=== PATIENT | female | born 1975 | race Caucasian/White ===

== ENCOUNTER 2022-11-09 02:34 | Emergency (ER) | payer SELFPAY ==
--- NOTE | ~2022-11-09 | XR_ITS ---
EXAMINATION: XR CHEST CLINICAL INFORMATION: Cough COMPARISON: None TECHNIQUE: Frontal view of the chest was obtained. FINDINGS: Lung volumes are symmetric. No focal consolidation is seen. No evidence of pneumothorax, pleural effusion, or pulmonary edema. Cardiac silhouette appears at the upper limits of normal in size. No acute osseous findings are seen. XR/XR chest 1V IMPRESSION: No acute cardiopulmonary findings.
[2022-11-09 02:36] VITALS: BP 154/97; PULSE 110; RESP 19; TEMP 36.6; O2SAT 97; BMI 42.0
--- NOTE | 2022-11-09 03:20 | PC.NURSE ---
PT A&Ox4, reports cough, congestion, chills, and chest congestion for 2 days. Reports pain 10/10. LS clear. O2 Sat 97% on RA. RR 20.
--- NOTE | 2022-11-09 03:33 | ED.URI ---
HPI - URI/Sore Throat General Chief Complaint: Upper Respiratory Symptoms Stated Complaint: upper respiratory Time Seen by Provider: 11/09/22 03:24 Source: patient Mode of arrival: ambulatory Limitations: no limitations History of Present Illness HPI Narrative: Patient already been vaccinated against COVID complaining of nasal congestion cough for 2 days getting worse does have history of asthma. No fever coughing frequently no shortness of breath Related Data Previous Rx's Medication Instructions Recorded cefuroxime axetil 500 mg tablet 500 mg PO BID 10 days #20 tabs 11/09/22 codeine 10 mg-guaifenesin 100 mg/5 10 ml PO Q4-6H PRN cough #237 mL 11/09/22 mL oral liquid (Guaifenesin AC) prednisone 20 mg tablet 40 mg PO DAILY #10 tabs 11/09/22 Allergies Allergy/AdvReac Type Severity Reaction Status Date / Time No Known Allergies Allergy Verified 11/09/22 03:24 Review of Systems Review of Systems: Yes all other systems are reviewed and are negative [facility] Social History Social History Alcohol intake: never Smoked in Last 30 Days: No Use of substances other than those prescribed or required for medical reasons: No Advance Directives: No Advance Directives Information Provided: No Patient : No Physical Exam Vital Signs: Vital Signs: Last Vital Signs Temp 97.9 F 11/09/22 02:36 Pulse 96 11/09/22 04:31 Resp 19 11/09/22 02:36 BP 154/97 H 11/09/22 02:36 Pulse Ox 98 11/09/22 04:31 O2 Del Method 11/09/22 04:31 BMI result Body Mass Index 42.0 Appearance: Alert. Oriented X3. No acute distress. Eyes: PERRLA, No Nystagmus ENT: Pharynx normal. Oral Mucosa moist Neck: Normal inspection. Neck supple. CVS: Normal heart rate and rhythm. Pulses normal. Respiratory: No respiratory distress. Equal air entry bilateral, no wheezing/rales/rhonchi Abdomen: Soft and nontender. Bowel sounds are present, Extremities: No lower extremity edema. No calf tenderness Neuro: Oriented X 3. No motor deficit. Medications Administered Discontinued Medications Generic Name Dose Route Start Last Admin Trade Name Freq PRN Reason Stop Dose Admin Cefuroxime Axetil 500 mg 11/09/22 03:41 11/09/22 03:51 Cefuroxime Axetil 500 Mg Tablet PO 11/09/22 03:42 500 mg ONCE ONE Administration Albuterol Sulfate 2.5 mg/ 0 mg 11/09/22 03:44 11/09/22 04:00 Albuterol/Ipratropium 3 ml INHALE 11/09/22 03:45 1 each ONCE ONE Administration Dexamethasone 10 mg 11/09/22 03:57 11/09/22 04:23 Dexamethasone 2 Mg Tablet PO 11/09/22 03:58 10 mg ONCE ONE Administration Guaifenesin/Codeine Phosphate 10 ml 11/09/22 03:27 11/09/22 03:35 Guaifen/Codeine Sf 200/20/10ml 10 Ml Liquid PO 11/09/22 03:28 10 ml ONCE ONE Administration Medical Decision Making Lab Data MDM Lab Attestation statement: I reviewed the patient's lab results. Labs: Lab Results 11/09/22 Range/Units 02:49 Influenza Type A (PCR) NEGATIVE (Negative) Influenza Type B (PCR) NEGATIVE (Negative) RSV RNA Qual (PCR) NEGATIVE (Negative) SARS-CoV-2 RNA (RT-PCR) NEGATIVE (Negative) Discharge Plan Discharge Clinical Impression: Bronchitis Patient Disposition: Home, Self-Care Instructions: Acute Bronchitis (ED) Additional Instructions: Take antibiotic and cough syrup as prescribed Use your inhaler every 4-6 hours as needed Prednisone as prescribed Follow with PCP as needed Prescriptions: New cefuroxime axetil 500 mg tablet 500 mg PO BID 10 Days Qty: 20 0RF codeine-guaifenesin [Guaifenesin AC] 10-100 mg/5 mL liquid 10 ml PO Q4-6H PRN (Reason: cough) Qty: 237 0RF prednisone 20 mg tablet 40 mg PO DAILY Qty: 10 0RF Interventions: ED Discharge Assessment Last Done: 11/09/22 04:46 Discharge Date/Time: 11/09/22 04:46
[2022-11-09] MEDS: guaiFEN/Codeine SF 200/20/10ML 10 ML LIQUID PO (03:35)
[2022-11-09 03:36] LABS: Influenza A PCR NEGATIVE (Negative); Influenza B PCR NEGATIVE (Negative); Resp Syncy Virus RNA Qual PCR NEGATIVE (Negative); SARS COV2 PCR INHOUSE NEGATIVE (Negative)
[2022-11-09] MEDS: Albuterol Sulfate 2.5 MG, Albuterol/Iprat 2.5/0.5MG 3 ML 3 ML INHALE (04:00)
[2022-11-09] MEDS: dexAMETHasone 2 MG TABLET 10 MG PO (04:23)
--- NOTE | 2022-11-09 04:30 | PC.NURSE ---
Meds given as documented, reports effective pain relief.
[2022-11-09 04:31] VITALS: PULSE 96; O2SAT 98
== END 2022-11-09 04:46 | disposition home or self-care (01) ==
PROVIDERS: Emergency Provider Internal Medicine
DX: J40 Bronchitis, not specified as acute or chronic (principal); Z20.822 Contact with and (suspected) exposure to COVID-19
CPT/HCPCS: 0241U; 71045; 99284; J8540

== ENCOUNTER 2025-06-16 12:22 | Emergency (ER) | payer MEDICAID, SELFPAY ==
--- NOTE | ~2025-06-16 | XR_ITS ---
EXAMINATION: XR KNEE, LEFT CLINICAL INFORMATION: pain COMPARISON: None available. TECHNIQUE: AP oblique and lateral views of the left knee. FINDINGS: Small marginal osteophyte formation, lateral tibial plateau and lateral femoral condyle. Asymmetric joint space narrowing. No acute cortical disruption or malalignment. No lytic or blastic lesions. Marginal osteophyte formation in the posterior superior patella. No suprapatellar bursa joint effusion. XR/XR knee LT 4V IMPRESSION: Mild tricompartmental osteoarthrosis. Electronically signed by: Christian Guerrero MD 06/16/2025 02:09 PM EDT
[2025-06-16 13:44] VITALS: BP 209/90; PULSE 89; RESP 16; TEMP 36.3; O2SAT 96; BMI 42.5
--- NOTE | 2025-06-16 13:44 | ED_ITS ---
HPI - General Adult General Chief complaint: Extremity Problem Stated complaint: l knee pain Time Seen by Provider: 06/16/25 17:12 Source: patient, RN notes reviewed and old records reviewed Mode of arrival: ambulatory Limitations: no limitations History of Present Illness ED Provider: Tamera TOMAS narrative: 50-year-old female presents for evaluation of left knee pain. She reports a history of arthritis in his had pain for the last 3 days pain She denies any recent trauma. She reports having had a cortisone injection in the left knee about 1 year ago which helped for a few months. She has been medicating at home with ibuprofen 800 mg about ran out of her prescription. The patient reports recently moving to the area and does not have any outpatient care set up she tried to go to the orthopedic office but was told she needs a referral and unfortunately she does not have a primary doctor. She is mostly requesting a referral to Orthopedics Related Data Previous Rx's ?Medication ?Instructions ?Recorded cefuroxime axetil 500 mg tablet 500 mg PO BID 10 days #20 tabs 11/09/22 codeine 10 mg-guaifenesin 100 mg/5 10 ml PO Q4-6H PRN cough #237 mL 11/09/22 mL oral liquid (Guaifenesin AC) prednisone 20 mg tablet 40 mg (2 x 20 mg) PO DAILY # 10 tabs 11/09/22 ibuprofen 800 mg tablet 800 mg PO Q8H PRN pain #30 t abs 06/16/25 Allergies Allergy/AdvReac Type Severity Reaction Status Date / Time Penicillins Allergy Rash Verified 06/16/25 13:46 Review of Systems Constitutional: Constitutional: Denies body ache(s), Denies chills and Denies fever(s) Musculoskeletal: Musculoskeletal: Reports arthralgias, Reports joint swelling, Reports limited range of motion and Reports radiating pain into limb Integumentary/Breasts: Skin/Breast: Denies erythema and Denies wounds PMFSH Social History Social History Alcohol intake: never Advance Directives: No Advance Directives Information Provided: No Physical Exam ED Vital Signs: Vital Signs - 24 hr 06/16/25 13:44 06/16/25 18:03 Temperature 97.4 F 97.4 F Pulse Rate 89 84 Respiratory Rate 16 16 Blood Pressure 209/90 H 157/93 H Pulse Oximetry 96 97 Oxygen Delivery Method Room Air Room Air BMI result Body Mass Index 42.5 Const General: healthy appearing, comfortable, no acute distress, alert and awake Nutritional Appearance: well nourished Orientation/consciousness: patient oriented x3 HENMT Head: Yes normocephalic and Yes atraumatic Eyes Eyelids: Yes eyelids normal Conjunctivae: conjunctivae normal Sclerae: sclerae normal Corneas: corneas normal Pupils: Equal, round and reactive pupils present EOM: EOMs intact bilaterally Neck Neck: Yes full ROM Resp Effort & Inspection: normal respiratory effort, able to speak in complete sentences and not labored Skin General skin exam: elasticity normal Neuro General: patient oriented x3 Cranial nerves: Yes Equal, round and reactive pupils present and Yes Bilaterally intact EOM present Cognition (Neuro): normal cognition Extrem Other: There is no clear or significant edema which could be mass due to body habitus. There was no clear joint effusion. The patient is able to flex and extend the knee without assistance. There was no calf tenderness. She is tender pretty much globally to the left knee, medial, anterior and lateral. Radial pulses are 2+ and equal. No palpable cords Cords to the left calf. No overlying skin changes such as erythema or increased warmth her rashes. Course Course Course Narrative: This is a rapid medical exam performed by Halima Bland NP: Additional HPI, ROS, PE not included below will be deferred to primary provider. Patient is a 50-year-old female with history of arthritis presenting to the ED with complaint of left knee pain which she states feels different from her regular arthritis. Denies fall or other trauma. Plan: xray Medical Decision Making Medical Decision Making MDM Narrative: Presents for evaluation of left knee pain. This is atraumatic. She does have a long/chronic history of osteoarthritis and has been followed previously, unfortunately she is new to the area and does not have any outpatient providers currently. Her x-ray shows mild arthritis. There are no evidence to suggest infectious process. No joint effusion, no fever, no erythema. There was no evidence of DVT. Plan to discharge the patient is symptomatic care for her to Orthopedics Differential Diagnosis Differential Diagnoses: The differential diagnosis associated with the presentation includes Osteoarthritis Joint effusion Knee pain DVT less likely Independent Interpretation I performed an independent interpretation of an: Plain X-Ray Interpretation: Agree with Radiology interpretation Radiology Impression Discussion of test interpretation with radiology: I have reviewed the radiologist's reading. Radiologist Impression: FINDINGS: Small marginal osteophyte formation, lateral tibial plateau and lateral femoral condyle. Asymmetric joint space narrowing. No acute cortical disruption or malalignment. No lytic or blastic lesions. Marginal osteophyte formation in the posterior superior patella. No suprapatellar bursa joint effusion. XR/XR knee LT 4V IMPRESSION: Mild tricompartmental osteoarthrosis. Electronically signed by: Christian Guerrero MD 06/16/2025 02:09 PM EDT Discharge Plan Discharge Clinical Impression: Acute pain of left knee Patient Disposition: Home, Self-Care Instructions: Knee Pain (ED) Additional Instructions: Your x-ray shows osteoarthritis. You may continue to use ibuprofen as needed for pain. However you should take this with food as it can cause upset stomach Follow up with Orthopedics Prescriptions: New ibuprofen 800 mg tablet 800 mg PO Q8H PRN (Reason: pain) Qty: 30 0RF No Action cefuroxime axetil 500 mg tablet 500 mg PO BID 10 Days Qty: 20 0RF codeine-guaifenesin [Guaifenesin AC] 10-100 mg/5 mL liquid 10 ml PO Q4-6H PRN (Reason: cough) Qty: 237 0RF prednisone 20 mg tablet 40 mg PO DAILY Qty: 10 0RF Referrals: [facility] [Provider Group] Referral Note: left knee arthritis Interventions: ED Discharge Assessment Last Done: 06/16/25 18:03 Discharge Date/Time: 06/16/25 18:04 Print Language: Chinese
[2025-06-16 18:03] VITALS: BP 157/93; PULSE 84; RESP 16; TEMP 36.3; O2SAT 97
== END 2025-06-16 18:04 | disposition home or self-care (01) ==
PROVIDERS: Emergency Provider Emergency Medicine
DX: M25.562 Pain in left knee (principal)
CPT/HCPCS: 73564; 99282; 99283

== ENCOUNTER → 2025-06-16 13:45 | Outpatient (BNV) | payer MEDICAID, SELFPAY | PROVIDERS: Visit Provider Radiology Diagnostic Radiology | DX: M17.12 Unilateral primary osteoarthritis, left knee (principal) | CPT/HCPCS: 73564 ==

== ENCOUNTER 2025-07-02 14:13 | Emergency (ER) | payer OTHER, SELFPAY ==
[2025-07-02] VITALS (7 sets, daily range): BP systolic 200–227; BP diastolic 94–119; PULSE 84–97; RESP 12–22; TEMP 36.9–37; O2SAT 95–97; BMI 43.6
--- NOTE | ~2025-07-02 | XR_ITS ---
EXAMINATION: XR LUMBOSACRAL SPINE CLINICAL INFORMATION: severe pain COMPARISON: None available. TECHNIQUE: AP and lateral views FINDINGS: Multilevel endplate sclerosis and small marginal osteophyte formation involving the lower thoracic spine the lumbar spine. There is decreased intervertebral disc height at L5-S1. Prominent transverse processes of L5. Bilateral facet joint hypertrophy at L3-4 L4-5 and L5-S1 levels. No acute cortical disruption or gross malalignment. Sclerosis and the facet joints, bilaterally XR/XR lumbar spine 2-3V IMPRESSION: Multilevel thoracolumbar spondylosis pronounced at L5-S1. Electronically signed by: Christian Guerrero MD 07/02/2025 02:50 PM EDT
--- NOTE | 2025-07-02 14:26 | ED.GENADULT ---
HPI - General Adult General Chief complaint: Abdominal Pain Stated complaint: back, both kidney pain Time Seen by Provider: 07/02/25 17:53 Source: patient Mode of arrival: ambulatory Limitations: no limitations History of Present Illness ED Provider: Dr. Jaziel Rodriguez HPI narrative: 50-year-old female with a history of hypertension, asthma, anxiety, osteoarthritis, spinal disc disease who presents emergency department severe lower back pain x2 days. The patient states she was just disease in his chronic pain. She states that over the last 2 days she has had gradual onset of lower back pain which she describes as a constant, burning sensation which is greater than 10/10. The patient took 1600 mg of ibuprofen and hydrocodone with no relief for pain. She denies numbness or weakness of her lower extremities. She denied fever or chills. She denied loss of bowel or bladder control. She denied frequency, urgency or dysuria. Related Data Previous Rx's ?Medication ?Instructions ?Recorded cefuroxime axetil 500 mg tablet 500 mg PO BID 10 days #20 tabs 11/09/22 codeine 10 mg-guaifenesin 100 mg/5 10 ml PO Q4-6H PRN cough #237 mL 11/09/22 mL oral liquid (Guaifenesin AC) prednisone 20 mg tablet 40 mg (2 x 20 mg) PO DAILY #10 tabs 11/09/22 ibuprofen 800 mg tablet 800 mg PO Q8H PRN pain #30 tabs 06/16/25 methocarbamol 750 mg tablet 750 mg PO BID PRN Back pain, 07/02/25 muscle spasm 10 days #20 tabs prednisone 10 mg tablet 10 mg PO DIRECTED #60 tabs 07/02/25 Allergies Allergy/AdvReac Type Severity Reaction Status Date / Time Penicillins Allergy Rash Verified 07/02/25 14:28 Review of Systems Review of Systems: Yes all other systems are reviewed and are negative [facility] Past Medical History [facility] Narrative: Social history: She denies tobacco, alcohol and drug use Social History Social History Alcohol intake: never Advance Directives: No Advance Directives Information Provided: No Do you have a plan to hurt others: No Plan Physical Exam ED Vital Signs: Vital Signs - 24 hr 07/02/25 14:26 Temperature 98.4 F Pulse Rate 97 Respiratory Rate 12 Blood Pressure 200/94 H Pulse Oximetry 95 Oxygen Delivery Method Room Air BMI result Body Mass Index 43.6 Vital signs revealed an elevated blood pressure of 200/94 otherwise unremarkable Exam: General: Awake, alert in no distress, weight 111.6 kg, elevated BMI 43.6 kg per m2, appears to be in distress secondary to her back pain Head: Normocephalic, atraumatic EENT: PERRL, Lids normal, sclera normal, conjunctiva normal, nose normal , ears normal, throat without erythema or exudates Neck: Supple, no adenopathy Lung: breath sounds symmetric, no wheezing, rales or rhonchi Chest: symmetric movement, nontender Heart: regular rate and rhythm, normal S1, S2 no murmurs or rubs Abdomen: soft, non-tender, nondistended, normal bowel sounds Back: Patient has tenderness palpation of her thoracic and lumbar vertebrae as well as tenderness palpation of the paraspinal muscles in the lumbar sacral area bilaterally with spasm of these muscles. She has a negative straight leg raises bilaterally Extremities: no deformities, moves all extremities symmetrically Neuro: Awake, alert, oriented, normal speech, cranial nerves intact, moves all extremities symmetrically Psych: Pleasant, cooperative Course Course Course Narrative: This is a rapid medical exam performed by Halima Bland NP: Additional HPI, ROS, PE not included below will be deferred to primary provider. Patient is a 50-year- old female presenting with complaint of bilateral lower back pain radiating around to abdomen since yesterday. Describes pain as burning. Took ibuprofen and hydrocodone yesterday but pain worse today. BP 200/94 Plan: lumbar xray, UA Medical Decision Making Medical Decision Making [facility] Narrative: 50-year-old female with a history of hypertension, asthma, anxiety, osteoarthritis, spinal disc disease who presents emergency department severe lower back pain x2 days. The patient states she was just disease in his chronic pain. She states that over the last 2 days she has had gradual onset of lower back pain which she describes as a constant, burning sensation which is greater than 10/10. The patient took 1600 mg of vital signs revealed an elevated ibuprofen and hydrocodone with no relief for pain. She denies numbness or weakness of her lower extremities. She denied fever or chills. She denied loss of bowel or bladder control. She denied frequency, urgency or dysuria. Vital signs revealed an elevated blood pressure of 294 otherwise unremarkable. Patient did appear to be in distress secondary to her back pain. She did have tenderness palpation over her thoracic and lumbar spine as well as the paraspinal muscles in the lumbar sacral area with spasm of these muscles. She had negative straight leg raises bilaterally neurologic exam was nonfocal. Differential diagnosis: ?Includes but is not limited to degenerative disc disease, degenerative joint disease, musculoskeletal sprain with spasm, anemia, electrolyte abnormalities, compression fracture Course: 18:25 My independent interpretation patient's laboratory evaluation is as follows: Urine was positive for blood and leukocyte esterase. Microscopic revealed 6-10 RBCs, 0-5 WBCs, 1+ bacteria, 6-10 squamous cells-non clean catch urine, I do not think that the patient has urinary tract infection plus she has no UTI symptoms. X-ray of the patient's lumbar spine revealed multilevel thoracolumbar spondylosis pronounced at L5-S1. Patient was treated with morphine 4 mg IV and Robaxin 750 mg orally. 20:55 Patient is feeling better, her pain is 4/10. Patient was given a 2nd dose of morphine 4 mg IV. Patient was discharged home with prescriptions for prednisone 60 mg once a day for 5 days, Robaxin 750 mg b.i.d. as needed for spasm. She was advised to take Tylenol alternating with her hydrocodone/acetaminophen. She was given printed and verbal instructions and discharged home. Admission/Observation Consideration of admission/observation: Escalation of care including admission/observation considered (Yes) Lab Data MDM Lab Attestation statement: I reviewed the patient's lab results. Labs: Lab Results 07/02/25 Range/Units 16:42 Urine Color Yellow Urine Appearance Clear Urine pH 6.0 (5.0-9.0) Ur Specific [place] <= 1.005 (1.005-1.025) Urine Protein Negative (Neg-Trace) mg/dL Urine Glucose (UA) Negative (Negative) mg/dL Urine Ketones Negative (Negative) mg/dL Urine Blood Moderate (2+) H (Negative) Urine Nitrite Negative (Negative) Ur Leukocyte Esterase Trace H (Negative) Urine RBC 6-10 H (0-2) /HPF Urine WBC 0-5 (0-5) /HPF Ur Squamous Epith Cells 6-10 (0-2) /HPF Urine Bacteria 1+ (None Seen) Hyaline Casts 0-2 (0-2) /LPF Radiology Impression Discussion of test interpretation with radiology: I have reviewed the radiologist's reading. Radiologist Impression: XR LUMBOSACRAL SPINE CLINICAL INFORMATION: severe pain COMPARISON: None available. TECHNIQUE: AP and lateral views FINDINGS: Multilevel endplate sclerosis and small marginal osteophyte formation involving the lower thoracic spine the lumbar spine. There is decreased intervertebral disc height at L5-S1. Prominent transverse processes of L5. Bilateral facet joint hypertrophy at L3-4 L4-5 and L5-S1 levels. No acute cortical disruption or gross malalignment. Sclerosis and the facet joints, bilaterally XR/XR lumbar spine 2-3V IMPRESSION: Multilevel thoracolumbar spondylosis pronounced at L5-S1. Electronically signed by: Christian Guerrero MD 07/02/2025 02:50 PM Independent Historian Clinical information obtained from an independent historian. History obtained from or confirmed by: Spouse Prescription Management I considered prescription management with: Other (Anti-inflammatory steroids: Prednisone, anti muscle spasm: Robaxin) Chronic Conditions Patient?s care impacted by: Hypertension and Other (Asthma) Discharge Plan Discharge Clinical Impression: Lumbar back sprain, Lumbar paraspinal muscle spasm Patient Disposition: Home, Self-Care Instructions: Muscle Spasm (ED), Back Pain (ED) Additional Instructions: Your urine test was negative for infection. The x-rays of your lower back are consistent with arthritis of your back. Take prednisone 20 mg pills, 3 pills once a day for 5 days. While you ?are taking prednisone, do not take any NSAIDs (Motrin, Advil, ibuprofen, Aleve, naproxen). Take Robaxin (methocarbamol) 750 mg pills, 1 pill every 12 hours as needed for pain or spasm. ?This medication will make you sleepy. ?Do not drive or work while taking this medication. Follow-up with your doctor in 2 days. Please return to the emergency department if your symptoms get worse or if you develop any symptoms that are concerning to you. Prescriptions: New prednisone 10 mg tablet 10 mg PO DIRECTED Qty: 60 0RF Rx Instructions: Day 1 through 5 take 6 pills then decrease by 1 pill every 2 days until you complete prescription methocarbamol 750 mg tablet 750 mg PO BID PRN (Reason: Back pain, muscle spasm) 10 Days Qty: 20 0RF No Action cefuroxime axetil 500 mg tablet 500 mg PO BID 10 Days Qty: 20 0RF codeine-guaifenesin [Guaifenesin AC] 10-100 mg/5 mL liquid 10 ml PO Q4-6H PRN (Reason: cough) Qty: 237 0RF prednisone 20 mg tablet 40 mg PO DAILY Qty: 10 0RF ibuprofen 800 mg tablet 800 mg PO Q8H PRN (Reason: pain) Qty: 30 0RF Print Language: Canadian
[2025-07-02 17:17] LABS: Appearance Urine Clear; Glucose Urine UA Negative (Negative); PH 6.0 (5.0-9.0); Specific Gravity - Urine <= 1.005 (1.005-1.025); UMIC TRIGGER UACC YES
== END 2025-07-02 21:18 | disposition home or self-care (01) ==
PROVIDERS: Registered Nurse Emergency; Emergency Provider Emergency Medicine Emergency Medical Services
DX: S33.5XXA Sprain of ligaments of lumbar spine, initial encounter (principal); M62.830 Muscle spasm of back; X58.XXXA Exposure to other specified factors, initial encounter; Y93.9 Activity, unspecified; Y92.9 Unspecified place or not applicable; Y99.8 Other external cause status; Z79.899 Other long term (current) drug therapy
CPT/HCPCS: 72100; 81001; 96374; 96375; 96376; 99284; J2270; J2405; J2919

== ENCOUNTER → 2025-07-02 14:28 | Outpatient (BNV) | payer MEDICAID, SELFPAY | PROVIDERS: Visit Provider Radiology Diagnostic Radiology | DX: M47.815 Spondylosis without myelopathy or radiculopathy, thoracolumbar region (principal) | CPT/HCPCS: 72100 ==

== ENCOUNTER 2025-07-16 09:07 | Outpatient (REF) | payer OTHER, SELFPAY ==
--- NOTE | ~2025-07-16 | XR_ITS ---
CLINICAL HISTORY: M25.562 - Pain in left knee 3 view left knee Comparison: None provided Findings: Bones intact. No dislocations. There is tricompartmental osteoarthrosis most significant within the patellofemoral compartment. There is patellofemoral compartment joint space narrowing with subchondral sclerosis and osteophyte formation. There is slight lateral subluxation of the tibia. There is small medial and lateral compartmental osteophytes. Comparison AP view of the right knee demonstrates degenerative changes with mild lateral subluxation of the tibia. No joint effusion. No radiopaque foreign body. IMPRESSION: Tricompartmental osteoarthrosis most significant within the patellofemoral compartment Limited comparison AP view right knee demonstrates degenerative changes This document has been electronically signed by: Tino Mansfield MD on 07/17/2025 08:29:36
== END 2025-07-16 09:08 | disposition home or self-care (01) ==
LOC: HO.HOSX 09:07
DX: M17.0 Bilateral primary osteoarthritis of knee (principal); M25.562 Pain in left knee
CPT/HCPCS: 73562; 99212

== ENCOUNTER 2025-07-16 09:27 | Outpatient (AMB) | payer MEDICAID, SELFPAY ==
[2025-07-16 09:33] VITALS: BMI 43.6
--- NOTE | 2025-07-16 09:33 | MHC.OFFVIS ---
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 At the ED, she reported about 1 year ago she had a cortisone injection back in [place] but it only helped for a few months. She reports today her pain is primarily on the medial aspect of the left knee. Patient states she has been diagnosed with bilateral osteoarthritis. While in [place], she was supposed to start gel injections but the insurance denied them, then she moved to [place]. She is interested on gel injections. She has tried knee braces, topical gels, a cane, and OTC pain medications like Ibuprofen. 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 At the ED, she reported about 1 year ago she had a cortisone injection back in [place] but it only helped for a few months. She reports today her pain is primarily on the medial aspect of the left knee. Patient states she has been diagnosed with bilateral osteoarthritis. While in [place], she was supposed to start gel injections but the insurance denied them, then she moved to [place]. She is interested on gel injections. She has tried knee braces, topical gels, a cane, and OTC pain medications like Ibuprofen. [facility] Social History (Updated 07/16/25 @ 09:41 by EMELI Fleming) Alcohol intake: never Patient Tobacco Use Status: Never used Tobacco Current occupational status: unemployed Current occupation: rt handed Review of Systems Const All systems reviewed & are unremarkable except as noted in HPI and below Physical Exam Vital Signs: BMI result Body Mass Index 43.6 Extrem Other: Patient's left knee normal to inspection No erythema, ecchymosis, edema noted No lacerations, abrasions, open areas No evidence of infection Patient reports no tenderness to palpation of the medial or lateral joint lines, posterior knee, quad tendon, patellar tendon, or elsewhere on the left knee Patient is able to flex and extend the left knee fully and without difficulty Mildly positive Jenna's in the medial compartment bilaterally Distal sensation intact Capillary refill brisk Results Reviewed Results Reviewed: X-rays obtained in the office today and independently reviewed by me, Ramon Singh PA-C, demonstrate moderate osteoarthritis of bilateral knees, slightly worse in the left. Assessment & Plan Assessment & Plan (1) Bilateral primary osteoarthritis of knee: Code(s): M17.0 - Bilateral primary osteoarthritis of knee Category: Medical Plan 1. Osteoarthritis of the bilateral knee Patient is educated about this injury Patient is educated about the treatment options available At this time, patient states she has had multiple injections into the left knee with steroids, and states that this has not helped much for the last 2-3 injections Patient expresses interest in gel injections Referral for authorization from her insurance for gel injections placed at this time Patient understands this is amenable to this plan If we obtain authorization for her jaw injections, when we hear from her insurance company we will reach out to the patient, patient will follow-up at that time Orders: Orders XR knee LT 3V Today M25.562 - Pain in left knee Medications: Discontinued codeine-guaifenesin 10-100 mg/5 mL (Guaifenesin AC) Discontinued Reason: Patient Completed Course 10 mL PO Q4-6H PRN 237 mL 0RF cough cefuroxime axetil Discontinued Reason: Patient Completed Course 500 mg PO BID 10 days 20 tabs 0RF prednisone Discontinued Reason: Patient Completed Course 40 mg (2 x 20 mg) PO DAILY 10 tabs 0RF prednisone Day 1 through 5 take 6 pills then decrease by 1 pill every 2 days until you complete prescription Discontinued Reason: Patient Completed Course 10 mg PO DIRECTED 60 tabs 0RF Coding Level of Care Code New Pt Level 3 (74668) Diagnoses Bilateral primary osteoarthritis of knee M17.0
== END 2025-07-16 10:01 | disposition home or self-care (01) ==
LOC: HO.HOS 09:27
DX: M17.0 Bilateral primary osteoarthritis of knee (principal)
CPT/HCPCS: 99204

== ENCOUNTER → 2025-07-16 09:29 | Outpatient (BNV) | payer OTHER, SELFPAY | PROVIDERS: Visit Provider Radiology Diagnostic Radiology | DX: M17.12 Unilateral primary osteoarthritis, left knee (principal) | CPT/HCPCS: 73562 ==

== ENCOUNTER 2025-09-11 13:55 | Outpatient (AMB) | payer OTHER, SELFPAY ==
[2025-09-11 14:08] VITALS: BMI 43.6
--- NOTE | 2025-09-11 14:08 | MHC.OFFVIS ---
Vital Signs 09/11/25 14:08 Height 5 ft 3 in Weight 246 lb BMI 43.6 Intake Visit Reasons: Inj- Agustin Knee Euflexxa #1 Intake Note: America is a 50 year old female who presents today for follow up of her Bilateral Knee Osteoarthritis and Euflexxa Gel Injection #1. Allergies Penicillins Allergy (Verified 09/11/25 14:08) Rash HPI HPI Inj- Agustin Knee Euflexxa #1: Details: America is a 50 year old female who presents today for follow up of her Bilateral Knee Osteoarthritis and Euflexxa Gel Injection #1. [facility] Social History Alcohol intake: never Patient Tobacco Use Status: Never used Tobacco Current occupational status: unemployed Current occupation: rt handed Physical Exam Vital Signs: BMI result Body Mass Index 43.6 Office Procedures Joint Inj/Aspir; Non-Pain Clin Joint Injection/Drain Prep: site was prepped using aseptic technique and injection warnings given Approach Used: anterolateral Procedure: The patient tolerated the procedure well and but had some pain with the injection Shoulders, Hips, Knees, Knee Large Joint Injection 62809: Bilateral Knee Coding Procedure code (CPT) selection complete Assessment & Plan Assessment & Plan (1) Bilateral primary osteoarthritis of knee: Code(s): M17.0 - Bilateral primary osteoarthritis of knee Category: Medical Plan 1. Bilateral knee Euflexxa injections The risks and benefits of a steroid injection including but not limited to risk of damage to blood vessels, nerves, tendons, infection, skin bleaching, failure to improve symptoms, increased pain, and possible need for further injections or other intervention were discussed with the patient and the patient wishes to proceed with the steroid injection. Once consent was obtained, I aseptically prepped the area over the anterolateral joint line of the bilateral knee. I then injected the anterolateral joint line with Euflexxa. The patient tolerated the procedure well with no complications. Follow-up next week for Euflexxa injection 2. Coding Level of Care Code Procedure Only Diagnoses Bilateral primary osteoarthritis of knee M17.0 CPT Codes Shoulders, Hips, Knees, - Knee Large Joint Injection [id number]: Bilateral Knee ([id number])
== END 2025-09-11 14:31 | disposition home or self-care (01) ==
LOC: HO.HOS 13:56
DX: M17.0 Bilateral primary osteoarthritis of knee (principal)
CPT/HCPCS: 20610

== ENCOUNTER → 2025-09-11 13:55 | Outpatient (BNVA) | payer OTHER, SELFPAY | DX: M17.0 Bilateral primary osteoarthritis of knee (principal) | CPT/HCPCS: 20610; J7323 ==

== ENCOUNTER 2025-09-17 13:49 | Outpatient (AMB) | payer OTHER, SELFPAY ==
--- NOTE | 2025-09-17 13:56 | MHC.OFFVIS ---
Intake Visit Reasons: Inj- Agustin Knee Euflexxa #2 Intake Note: America is a 50 year old female who presents today for her 2nd dose of Euflexxa injection,#2. Allergies Penicillins Allergy (Verified 09/11/25 14:08) Rash HPI HPI Inj- Agustin Knee Euflexxa #2: Details: America is a 50 year old female who presents today for her 2nd dose of Euflexxa injection,#2. [facility] Social History Alcohol intake: never Patient Tobacco Use Status: Never used Tobacco Current occupational status: unemployed Current occupation: rt handed Office Procedures Joint Inj/Aspir; Non-Pain Clin Joint Injection/Drain Prep: site was prepped using aseptic technique and injection warnings given Approach Used: anterolateral Procedure: The patient tolerated the procedure well and but had some pain with the injection Shoulders, Hips, Knees, Knee Large Joint Injection [id number]: Bilateral Knee Coding Procedure code (CPT) selection complete Assessment & Plan Assessment & Plan (1) Bilateral primary osteoarthritis of knee: Code(s): M17.0 - Bilateral primary osteoarthritis of knee Category: Medical Plan 1. Bilateral knee Euflexxa injections The risks and benefits of a steroid injection including but not limited to risk of damage to blood vessels, nerves, tendons, infection, skin bleaching, failure to improve symptoms, increased pain, and possible need for further injections or other intervention were discussed with the patient and the patient wishes to proceed with the steroid injection. Once consent was obtained, I aseptically prepped the area over the anterolateral joint line of the bilateral knee. I then injected the anterolateral joint line with Euflexxa. The patient tolerated the procedure well with no complications. Follow-up next week for Euflexxa injection 3 Coding Level of Care Code Procedure Only Diagnoses Bilateral primary osteoarthritis of knee M17.0 CPT Codes Shoulders, Hips, Knees, - Knee Large Joint Injection [id number]: Bilateral Knee ([id number])
== END 2025-09-17 14:17 | disposition home or self-care (01) ==
LOC: HO.HOS 13:50
DX: M17.0 Bilateral primary osteoarthritis of knee (principal)
CPT/HCPCS: 20610

== ENCOUNTER → 2025-09-17 13:49 | Outpatient (BNVA) | payer OTHER, SELFPAY | DX: M17.0 Bilateral primary osteoarthritis of knee (principal) | CPT/HCPCS: 20610; J7323 ==

== ENCOUNTER 2025-09-24 13:58 | Outpatient (AMB) | payer OTHER, SELFPAY ==
--- NOTE | 2025-09-24 14:03 | A.OFFVIS_ITS ---
Intake Visit Reasons: Inj- Agustin Knee Euflexxa #3 Intake Note: America is a 50 year old female who presents today for bilateral knee injections, Euflexxa #3. Allergies Penicillins Allergy (Verified 09/11/25 14:08) Rash HPI HPI Inj- Agustin Knee Euflexxa #3: Details: America is a 50 year old female who presents today for bilateral knee injections, Euflexxa #3. [facility] Social History Alcohol intake: never Patient Tobacco Use Status: Never used Tobacco Current occupational status: unemployed Current occupation: rt handed Office Procedures Joint Inj/Aspir; Non-Pain Clin Joint Injection/Drain Prep: site was prepped using aseptic technique and injection warnings given Approach Used: anterolateral Procedure: The patient tolerated the procedure well, but had some pain with the injection and there was some relief with the local anesthesia Shoulders, Hips, Knees, Knee Large Joint Injection [id number]: Bilateral Knee Coding Procedure code (CPT) selection complete Assessment & Plan Assessment & Plan (1) Bilateral primary osteoarthritis of knee: Code(s): M17.0 - Bilateral primary osteoarthritis of knee Category: Medical Plan 1. Bilateral knee Euflexxa injections The risks and benefits of a steroid injection including but not limited to risk of damage to blood vessels, nerves, tendons, infection, skin bleaching, failure to improve symptoms, increased pain, and possible need for further injections or other intervention were discussed with the patient and the patient wishes to proceed with the steroid injection. Once consent was obtained, I aseptically prepped the area over the anterolateral joint line of the bilateral knee. I then injected the anterolateral joint line with Euflexxa. The patient tolerated the procedure well with no complications. F/u in 6 months if still experiencing knee pain Coding Level of Care Code Procedure Only Diagnoses Bilateral primary osteoarthritis of knee M17.0 CPT Codes Shoulders, Hips, Knees, - Knee Large Joint Injection [id number]: Bilateral Knee ([id number])
== END 2025-09-24 14:18 | disposition home or self-care (01) ==
LOC: HO.HOS 13:59
DX: M17.0 Bilateral primary osteoarthritis of knee (principal)
CPT/HCPCS: 20610

== ENCOUNTER → 2025-09-24 13:58 | Outpatient (BNVA) | payer OTHER, SELFPAY | DX: M17.0 Bilateral primary osteoarthritis of knee (principal) | CPT/HCPCS: 20610; 99202; 99212; J7323 ==

== ENCOUNTER 2025-10-22 08:53 | Outpatient (AMB) | payer OTHER, SELFPAY ==
[2025-10-22 09:01] VITALS: BP 142/90; PULSE 91; RESP 18; O2SAT 93; BMI 43.2
--- NOTE | 2025-10-22 09:01 | MHC.PC.OV ---
Vital Signs 10/22/25 09:01 Height 5 ft 3 in Weight 244 lb 2 oz BMI 43.2 BP 142/90 H Blood Pressure Location Rt brachial Position Sitting Respiration 18 Pulse 91 Pulse Source Pulse Oximeter Temp Source Temporal Artery Scan Pulse Oximetry (%) 93 Oxygen Delivery Method Room Air Intake Visit Reasons: establish [facility] Stator Winder Required: No Accompanied by: Self / Same As Patient Allergies Penicillins Allergy (Verified 10/22/25 09:05) Rash Medication List - Last Reconciled 10/22/25 by Priscilla Gomez PA-C albuterol sulfate 90 mcg/actuation (Ventolin HFA) 2 puffs inhalation Q6H PRN cetirizine (All Day Allergy (cetirizine)) 10 mg PO DAILY PRN cyclobenzaprine 10 mg PO BEDTIME fluoxetine 40 mg PO DAILY hydrocodone-acetaminophen 2.5-325 mg 1 tab PO BID PRN ibuprofen 800 mg PO Q8H PRN lisinopril 20 mg PO DAILY methocarbamol 750 mg PO BID PRN 10 days prednisone 20 mg PO BID Tobacco use date assessed: 10/22/25 Dental Screening Dental Screen Date: 10/22/25 HPI establish care HPI Details 50 year old female coming to the office for the first time. In review of the notes, patient has been following with ortho for alton knee OA and was seen 09/2025 for alton knee Euflexxa injections. Presenting to [facility] after moving to [place] from [place] in May. The patient reports chronic back pain, which has required two emergency room visits for IV pain medication. The back pain limits the ability to stand for more than 20 minutes, sit for long periods, or lift more than 5-10 pounds. Standing for prolonged periods causes the patient's legs to become completely numb. Previous physical therapy with heating pads for back pain was stopped due to subsequent severe muscle cramping. The patient has a history of anxiety and depression and reports that the current medication, fluoxetine, is not effective and causes nausea. The patient found lorazepam to be effective in the past. The patient also reports difficulty with sleep. For a history of asthma, the patient uses an albuterol inhaler about twice daily, with increased use during winter and summer, which results in phlegm production. mammogram: ordered colonoscopy: referral placed pap smear: referral placed [facility] Social History Alcohol intake: never Patient Tobacco Use Status: Never used Tobacco Current occupational status: unemployed Current occupation: rt handed Cognitive needs: No Hearing needs: Yes Vision needs: Yes Questionnaire PHQ-9 Over the last 2 weeks, how often have you been bothered by any of the following problems? 1. Little interest or pleasure in doing things: several days 2. Feeling down, depressed, or hopeless: several days 3. Trouble falling or staying asleep, or sleeping too much: several days 4. Feeling tired or having little energy: more than half the days 5. Poor appetite or overeating: several days 6. Feeling bad about yourself - or that you are a failure or have let yourself or your family down: several days 7. Trouble concentrating on things, such as reading the newspaper or watching television: several days 8. Moving or speaking so slowly that other people could have noticed. Or the opposite - being so fidgety or restless that you have been moving around a lot more than usual: several days 9. Thoughts that you would be better off or of hurting yourself in some way: not at all Total score: 9 Depression Screening Interpretation: Positive Depression Screening Follow-up: Existing condition and Change in Medication Depression Screening Done: Yes 54608 - PHQ-9 Billing: Yes Source: Developed by Drs. Tino Nelson, Sapna Garcia, Carlos Triana and colleagues, with an educational mckay from [employer]. Thrive Questionnaire Date Thrive assessed: 10/22/25 I am a: Patient What is your living situation today?: I have a steady place to live Within the past 12 months, did the food you bought not last and you didn't have the money to get more?: Often true Within the past 12 months, did you worry whether your food would run out before you got money to buy more?: Often true Do you have trouble paying for medicines?: Yes Do you have trouble getting transportation to medical appointments?: No Do you have trouble paying your heating and electricity bill?: Yes Do you have trouble taking care of your child, family member or friend?: Yes Do you have trouble with day-to-day activities such as bathing, preparing meals, shopping, managing finances, etc.?: Yes Are you currently unemployed and looking for a job?: No Are you interested in more education?: I choose not to answer this question Please select the resources that you would like help with: Food, Paying for medicine and Daily support Currently or been in a relationship where the following occur: I choose not to answer THRIVE Score: 3 AUDIT C Alcohol Use Questionnaire (AUDIT-C) 1. How often do you have a drink containing alcohol?: Never 3. How often do you have six or more drinks on one occasion?: Never Total Score: 0 KELLY-7 AMB Questionnaire KELLY-7 Date KELLY - 7 assessed: 10/22/25 Feeling nervous, anxious, or on edge: 3 = Nearly every day Not being able to stop or control worryin = Nearly every day Worrying too much about different things: 3 = Nearly every day Trouble relaxin = Nearly every day Being so restless that it is hard to sit still: 3 = Nearly every day Becoming easily annoyed or irritable: 3 = Nearly every day Feeling afraid as if something awful might happen: 3 = Nearly every day Total KELLY-7 score (0-4 normal; 5-9 mild; 10-14 moderate; 15-21 severe): 21 Source: Developed by Drs. Tino Nelson, Sapna Garcia, Carlos Triana and colleagues, with an educational mckay from [employer]. KELLY-7 Assessment Billing KELLY-7 Assessment Tool: KELLY-7 Assessment 12553 Review of Systems Const Denies body aches, Denies chills, Denies fever(s), Denies headache(s) and Denies poor appetite Eyes Reports no additional complaints ENT Denies dizziness and Denies headache(s) Card Denies chest pain, Denies syncope, Denies lightheadedness and Denies dyspnea Resp Denies dyspnea GI Denies abdominal pain, Denies nausea and Denies vomiting Reports no additional complaints Musc Reports as per HPI and Denies abnormal gait Skin/Breast Reports system reviewed and no additional complaints, except as documented Neuro Denies abnormal gait, Denies dizziness, Denies syncope and Denies headache(s) Psych Reports no additional complaints Physical exam (Primary Care) Vital Signs: Last Vital Signs Pulse 91 10/22/25 09:01 Resp 18 10/22/25 09:01 BP 142/90 H 10/22/25 09:01 Pulse Ox 93 10/22/25 09:01 Oxygen Delivery Method Room Air 10/22/25 09:01 BMI result Body Mass Index 43.2 Tobacco/Smoking Status: Tobacco use Status Tobacco use date assessed 10/22/25 10/22/25 09:05 Patient Tobacco Use Status Never used Tobacco 10/22/25 09:05 PHQ-9: PHQ-9 Score PHQ-9: Total score 9 10/22/25 10:02 Depression Screening Interpretation: Positive Depression Screening Follow-up: Existing condition and Change in Medication Thrive Assessment: Date of Thrive Assessment Date Thrive assessed 10/22/25 10/22/25 09:05 Currently or been in a relationship where the following occur: I choose not to answer Const General: cooperative, healthy appearing, comfortable and no acute distress Orientation/consciousness: patient oriented x3 HENMT Head: Yes normocephalic Ears: hearing grossly normal bilaterally, TM's normal bilaterally and EAC's normal General nose exam: Normal external nose present Eyes General: appearance normal, both eyes and all related structures Conjunctivae: conjunctivae normal Neck Neck: Yes full ROM and Yes no lymphadenopathy Resp Effort & Inspection: normal respiratory effort Auscultation: clear to auscultation bilaterally, no crackles, no rales, no rhonchi and no wheezes Cardio Rate: regular rate Rhythm: regular rhythm Skin General skin exam: no rashes or lesions noted Neuro General: patient oriented x3 Gait exam (Neuro): Normal gait present Extrem General: Yes normal to inspection, Yes full ROM and No edema Psych Affect: normal affect Attitude: cooperative Insight: Good insight present (Psych) Judgement: Good judgement present (Psych) Coding Level of Care Code New Pt Level 4 (53168) Diagnoses Bilateral primary osteoarthritis of knee M17.0 Asthma J45.909 Anxiety F41.9 Depression F32.A Lumbar degenerative disc disease M51.369 Hypertension I10 Left shoulder pain M25.512 Additional Codes KELLY-7 Assessment Billing - KELLY-7 Assessment Tool: KELLY-7 Assessment 59451 ([id number]) PHQ-9 - 27112 - PHQ-9 Billing: Yes ([id number]) Assessment & Plan Assessment & Plan (1) Bilateral primary osteoarthritis of knee: Code(s): M17.0 - Bilateral primary osteoarthritis of knee Category: Medical Plan: Recently received bilateral knee Euflexxa injections. She will continue to follow with orthopedics. (2) Asthma: Code(s): J45.909 - Unspecified asthma, uncomplicated Category: Medical Plan: Asthma is not well controlled at this time. Plan to start on maintenance inhaler daily and follow up in 2 months. (3) Anxiety: Code(s): F41.9 - Anxiety disorder, unspecified Category: Medical Plan: A referral to Psychiatry will be placed. Fluoxetine 40 mg will be tapered off by taking 20 mg daily for one week, followed by 20 mg every other day for one week, and then stopping completely for one week. After the taper, the patient will start trazodone at bedtime, which is intended to help with sleep, anxiety, and depression. (4) Depression: Code(s): F32.A - Depression, unspecified Category: Medical Plan: See above (5) Lumbar degenerative disc disease: Code(s): M51.369 - Other intervertebral disc degeneration, lumbar region without mention of lumbar back pain or lower extremity pain Category: Medical Plan: A referral to Pain Management will be placed. In the interim, the patient may use Tylenol or ibuprofen for pain relief. The patient will discontinue cyclobenzaprine and was prescribed methocarbamol for muscle spasms. MRI has been scanned into chart. (6) Hypertension: Code(s): I10 - Essential (primary) hypertension Category: Medical Plan: PLan to increase Lisinopril as blood pressure is elevated in the office and higher when retaken. Avoid salt intake and encourage healthy diet and regular exercise. She will continue to monitor blood pressure at home and given resources today as well. (7) Left shoulder pain: Code(s): M25.512 - Pain in left shoulder Category: Medical Plan: For left shoulder pain she has appointment with orthopedics next month. Plan I had a detailed discussion with the patient, who is establishing care today. We reviewed the patient's multiple chronic pain issues, including back, knee, and shoulder pain, and I placed a referral to Pain Management for the back pain and advised continuing with Orthopedics for the knees and shoulder. I addressed the patient's dissatisfaction with fluoxetine for anxiety and depression, which causes nausea. We decided to taper off fluoxetine and start trazodone at bedtime to help with these symptoms as well as insomnia. A referral to Psychiatry was also placed for further management. We discussed the overuse of the albuterol inhaler for asthma, and I prescribed a new once-daily maintenance inhaler to improve control, explaining the goal of reducing rescue inhaler use to once or twice a week and the importance of rinsing the mouth after use. Given the patient's very high blood pressure today, I increased the lisinopril dose to 30 mg daily and provided education on monitoring blood pressure at home. I also addressed the acute ear pain; since the exam was normal, I prescribed a nasal spray. I placed referrals for all necessary health screenings, including a colonoscopy, mammogram, and eye and gynecological exams. We will follow up in two months to check on breathing and blood pressure. This note was constructed using voice recognition software. While every effort has been made to ensure accuracy and baker pastry, still areas may have been included sometimes these areas may affect the content or meeting of the given symptoms. Total time spent caring for the patient today was 30 minutes. This includes time spent before the visit reviewing the chart, time spent during the visit, and time spent after the visit and documentation. Patient was informed and verbally consented to the use of an ambient scribe for clinic note documentation during this visit. Orders: Orders TSH reflex Free T4 Today Z13.29 - Encounter for screening for other suspected endocrine disorder Vitamin B12 and Folate Today Z13.21 - Encounter for screening for nutritional disorder Vitamin D 25-OH Total Today Z13.21 - Encounter for screening for nutritional disorder Comprehensive Met. Panel Today Z00.00 - Encounter for general adult medical examination without abnormal findings, Z13.1 - Encounter for screening for diabetes mellitus Complete Blood Count Auto Diff Today Z13.0 - Encounter for screening for diseases of the blood and blood-forming organs and certain disorders involving the immune mechanism Lipid Panel Today E78.00 - Pure hypercholesterolemia, unspecified, Z13.220 - Encounter for screening for lipoid disorders Hemoglobin A1c Today E11.65 - Type 2 diabetes mellitus with hyperglycemia, Z13.1 - Encounter for screening for diabetes mellitus MM tomosynthesis screening BI Today Z12.31 - Encounter for screening mammogram for malignant neoplasm of breast Referrals Pain Management Referral M51.369 - Other intervertebral disc degeneration, lumbar region without mention of lumbar back pain or lower extremity pain Psychiatry Referral F32.A - Depression, unspecified, F41.9 - Anxiety disorder, unspecified Optometry Referral Z00.00 - Encounter for general adult medical examination without abnormal findings Gastroenterology Referral Z12.11 - Encounter for screening for malignant neoplasm of colon [employer] Referral Z12.4 - Encounter for screening for malignant neoplasm of cervix Medications: New albuterol sulfate 90 mcg/actuation (Ventolin HFA) 2 puffs inhalation Q6H PRN 8.5 grams 0RF bronchospasm cetirizine (All Day Allergy (cetirizine)) 10 mg PO DAILY 90 tabs 0RF trazodone 50 mg PO BEDTIME 90 tabs 0RF fluticasone furoate 100 mcg/actuation 1 inh inhalation DAILY 30 ea 0RF fluticasone propionate 50 mcg/actuation (Flonase Allergy Relief) administer into each nostril 1 spray intranasal DAILY 16 grams 0RF lisinopril 30 mg PO DAILY 90 tabs 0RF Changed From methocarbamol 750 mg PO BID 10 days PRN 20 tabs 0RF Back pain, muscle spasm To methocarbamol 750 mg PO BID PRN 30 tabs 0RF Back pain, muscle spasm
== END 2025-10-22 09:53 | disposition home or self-care (01) ==
LOC: HO.HMCH 08:54
DX: M17.0 Bilateral primary osteoarthritis of knee (principal); J45.909 Unspecified asthma, uncomplicated; F41.9 Anxiety disorder, unspecified; F32.A Depression, unspecified; M51.369 Other intervertebral disc degeneration, lumbar region without mention of lumbar back pain or lower extremity pain; I10 Essential (primary) hypertension; M25.512 Pain in left shoulder

== ENCOUNTER 2025-10-22 08:53 | Outpatient (REF) | payer OTHER, SELFPAY ==
[2025-10-22 10:13] LABS: MANUAL DIFF FLAG NO
[2025-10-22 10:40] LABS: Hematocrit 41.3 % (37.0-47.0); Hemoglobin 13.5 g/dl (12.0-16.0); Imm Gran Abs Auto 0.05 X10*3/uL (0.00-0.03); Imm Gran Pct Auto 0.9 % (0.0-0.4); Lymphocytes Absolute Auto 1.9 X10*3/uL (1.2-4.9); Mean Corpuscular HGB Conc 32.7 g/dl (31.0-35.0); Mean Corpuscular Hemoglobin 28.1 pg (27.0-33.0); Mean Corpuscular Volume 86.0 fL (80.0-98.0); NRBC Abs Auto 0.000 X10*3/uL (0.0-0.012); NRBC Pct Auto 0.0 /100WBC (0.0-0.2); Platelet Count 274 X10*3/uL (160-400); Red Blood Count 4.80 X10*6/uL (4.20-5.50); White Blood Count 5.8 X10*3/uL (4.8-10.8)
[2025-10-22 11:21] LABS: Alanine Aminotransferase 44 U/L (0-31); Albumin Level 4.4 g/dL (3.5-5.0); Alkaline Phosphatase 95 U/L (39-117); Anion Gap 12 (12-20); Aspartate Amino Transferase 28 U/L (5-31); Blood Urea Nitrogen 19 mg/dL (9-16); Calcium 9.7 mg/dL (8.4-10.2); Carbon Dioxide 28 mmol/L (22-29); Chloride 105 mmol/L (96-108); Cholesterol 181 mg/dL (<200); Estimated Glomerular Filt Rate > 60; HDL Cholesterol 48 mg/dL (>40); Potassium 3.8 mmol/L (3.3-5.1); Sodium 141 mmol/L (135-145); Total Protein 7.7 g/dL (6.5-8.0); Triglycerides 111 mg/dL (<150)
[2025-10-22 11:47] LABS: Folate 6.9 ng/mL (> or = 4.0); Vitamin B12 321 pg/mL (200-900)
[2025-10-22 14:35] LABS: Free T4 (Free Thyroxine) 0.89 ng/dL (0.71-1.85)
== END 2025-10-22 08:54 | disposition home or self-care (01) ==
LOC: HO.LAB 08:53
DX: Z00.00 Encounter for general adult medical examination without abnormal findings (principal); Z13.21 Encounter for screening for nutritional disorder; Z13.1 Encounter for screening for diabetes mellitus; Z13.220 Encounter for screening for lipoid disorders; Z13.29 Encounter for screening for other suspected endocrine disorder; Z13.0 Encounter for screening for diseases of the blood and blood-forming organs and certain disorders involving the immune mechanism; E11.65 Type 2 diabetes mellitus with hyperglycemia; E78.00 Pure hypercholesterolemia, unspecified; M17.0 Bilateral primary osteoarthritis of knee; J45.909 Unspecified asthma, uncomplicated; F41.9 Anxiety disorder, unspecified; F32.A Depression, unspecified; M51.369 Other intervertebral disc degeneration, lumbar region without mention of lumbar back pain or lower extremity pain; I10 Essential (primary) hypertension; M25.512 Pain in left shoulder
CPT/HCPCS: 36415; 80053; 80061; 82306; 82607; 82746; 83036; 84439; 84443; 85025; 96127; 99202

== ENCOUNTER 2025-11-03 08:56 | Outpatient (AMB) | payer OTHER, SELFPAY ==
--- NOTE | 2025-11-03 09:00 | MHC.PC.OV ---
Vital Signs 11/03/25 09:02 Height 5 ft 3 in Weight 244 lb BMI 43.2 BP 166/98 H Pulse 90 Pulse Source Pulse Oximeter Temp 97.3 F Temp Source Temporal Artery Scan Pulse Oximetry (%) 98 Oxygen Delivery Method Room Air Intake Visit Reasons: discuss medications It Help Desk Technician Required: No Accompanied by: Self / Same As Patient Allergies Penicillins Allergy (Verified 11/03/25 09:16) Rash Medication List - Last Reconciled 11/03/25 by Priscilla Gomez PA-C albuterol sulfate 90 mcg/actuation (Ventolin HFA) 2 puffs inhalation Q6H PRN budesonide-formoterol 160-4.5 mcg/actuation (Symbicort) 1 inh inhalation BID cetirizine (All Day Allergy (cetirizine)) 10 mg PO DAILY cholecalciferol (vitamin D3) 50 mcg PO DAILY clonidine HCl 0.2 mg PO BID fluoxetine 40 mg PO DAILY fluticasone furoate 100 mcg/actuation 1 inh inhalation DAILY fluticasone propionate 50 mcg/actuation (Flonase Allergy Relief) 1 spray intranasal DAILY folic acid 1 mg PO DAILY hydrocodone-acetaminophen 2.5-325 mg 1 tab PO BID PRN hydroxyzine HCl 10 mg PO TID PRN ibuprofen 800 mg PO Q8H PRN lisinopril-hydrochlorothiazide 20-25 mg 1 tab PO DAILY methocarbamol 750 mg PO BID PRN methotrexate sodium 2.5 mg PO QWEEK metoprolol succinate ER 50 mg PO DAILY mirtazapine 45 mg PO DAILY Tobacco use date assessed: 10/22/25 Dental Screening Dental Screen Date: 10/22/25 HPI discuss medications HPI Details 50 year old female with past medical history of asthma, depression, anxiety, LDDD and hypertension last 10/2025 coming in for acute problem. Presenting with back pain and for medication management. The patient reports using hydrocodone for back pain and has run out of this medication. There is significant confusion regarding her medication regimen. She reports taking fluoxetine 40 mg twice daily, although previous records indicate it was prescribed as once daily. She also takes methotrexate, prescribed by a developer designer for a condition like rheumatoid arthritis or lupus, for which she experiences pain in her shoulders and hot sensations in her feet. [facility] Social History Alcohol intake: never Patient Tobacco Use Status: Never used Tobacco Current occupational status: unemployed Current occupation: rt handed Cognitive needs: No Hearing needs: Yes Vision needs: Yes Questionnaire Thrive Questionnaire Date Thrive assessed: 10/15/25 I am a: Patient What is your living situation today?: I have a steady place to live Within the past 12 months, did the food you bought not last and you didn't have the money to get more?: Often true Within the past 12 months, did you worry whether your food would run out before you got money to buy more?: Often true Do you have trouble paying for medicines?: Yes Do you have trouble getting transportation to medical appointments?: No Do you have trouble paying your heating and electricity bill?: Yes Do you have trouble taking care of your child, family member or friend?: Yes Do you have trouble with day-to-day activities such as bathing, preparing meals, shopping, managing finances, etc.?: Yes Are you currently unemployed and looking for a job?: No Are you interested in more education?: I choose not to answer this question Currently or been in a relationship where the following occur: I choose not to answer THRIVE Score: 3 KELLY-7 AMB Questionnaire KELLY-7 Date KELLY - 7 assessed: 10/22/25 Source: Developed by Drs. Tino Nelson, Sapna Garcia, Carlos Triana and colleagues, with an educational mckay from [employer]. Review of Systems Const Denies body aches, Denies chills, Denies fever(s) and Denies headache(s) Eyes Reports no additional complaints ENT Denies dizziness and Denies headache(s) Card Denies chest pain, Denies edema, Denies lightheadedness and Denies dyspnea Resp Denies dyspnea GI Denies abdominal pain, Denies nausea and Denies vomiting Reports no additional complaints Musc Denies abnormal gait and Reports back pain Skin/Breast Reports system reviewed and no additional complaints, except as documented Neuro Denies abnormal gait, Denies dizziness and Denies headache(s) Psych Reports no additional complaints Physical exam (Primary Care) Vital Signs: Last Vital Signs Temp 97.3 F 11/03/25 09:02 Pulse 90 11/03/25 09:02 BP 166/98 H 11/03/25 09:02 Pulse Ox 98 12/15/25 09:02 Oxygen Delivery Method Room Air 11/03/25 09:02 BMI result Body Mass Index 43.2 Tobacco/Smoking Status: Tobacco use Status Tobacco use date assessed 10/22/25 11/03/25 09:04 Patient Tobacco Use Status Never used Tobacco 11/03/25 09:04 Thrive Assessment: Date of Thrive Assessment Date Thrive assessed 10/15/25 11/03/25 09:04 Currently or been in a relationship where the following occur: I choose not to answer Const General: cooperative, healthy appearing, comfortable and no acute distress Orientation/consciousness: patient oriented x3 HENMT Head: Yes normocephalic Ears: hearing grossly normal bilaterally General nose exam: Normal external nose present Eyes General: appearance normal, both eyes and all related structures Conjunctivae: conjunctivae normal Neck Neck: Yes full ROM and Yes no lymphadenopathy Resp Effort & Inspection: normal respiratory effort Auscultation: clear to auscultation bilaterally, no crackles, no rales, no rhonchi and no wheezes Cardio Rate: regular rate Rhythm: regular rhythm Skin General skin exam: no rashes or lesions noted Neuro General: patient oriented x3 Gait exam (Neuro): Normal gait present Extrem General: Yes normal to inspection, Yes full ROM and No edema Psych Affect: normal affect Attitude: cooperative Insight: Good insight present (Psych) Judgement: Good judgement present (Psych) Coding Level of Care Code Est Pt Level 4 (65607) Diagnoses Rheumatoid arthritis M06.9 Lumbar degenerative disc disease M51.369 Nonadherence to medication Z91.148 Depression F32.A Anxiety F41.9 Hypertension I10 Assessment & Plan Assessment & Plan (1) Rheumatoid arthritis: Code(s): M06.9 - Rheumatoid arthritis, unspecified Category: Medical Plan: Patient on methotrexate from her last developer designer. Referral was placed to rheumatology today (2) Lumbar degenerative disc disease: Code(s): M51.369 - Other intervertebral disc degeneration, lumbar region without mention of lumbar back pain or lower extremity pain Category: Medical Plan: The patient's use of hydrocodone for back pain is noted, but this is considered a strong medication and not a good long-term treatment. A small, short course of hydrocodone will be prescribed to bridge the patient until she can be seen by pain management, but it will not be refilled afterward. A referral to pain management was previously sent, but they reported being unable to reach the patient. The patient was provided with the pain management clinic's phone number and instructed to call them today to schedule an appointment. Tramadol is not an option for her. (3) Nonadherence to medication: Code(s): Z91.148 - Patient's other noncompliance with medication regimen for other reason Category: Medical Plan: Patient has poor compliance with medication and is unsure what medications she is taking. I provided the patient with a medication list today and she will compare her prescription bottles as she has a home with a list. I did update the list with her last PCP notes and she will let me know what refills she needs at this time. I did stress the importance to the patient of medication compliance and being aware of what medications she is taking. She will follow up in 3 weeks and bring her prescription bottles at that time. (4) Depression: Code(s): F32.A - Depression, unspecified Category: Medical Plan: For depression and anxiety she continues on the fluoxetine 40 mg and refills were sent for other psychiatric medications. Referral was placed to [facility] and she has a appointment coming up. (5) Anxiety: Code(s): F41.9 - Anxiety disorder, unspecified Category: Medical Plan: See above (6) Hypertension: Code(s): I10 - Essential (primary) hypertension Category: Medical Plan: Upon reviewing the last PCP notes patient is on combination pill lisinopril-hydrochlorothiazide and not lisinopril alone. This was refilled today and she will begin taking this medication. Plan There is considerable confusion regarding the patient's current medications, and a thorough medication reconciliation was performed using a list from her previous provider. The patient was instructed to check her current medication supply at home and report back on what she has and does not have so refills can be managed. She has been asked to bring all of her medication bottles to the next appointment in three weeks for review. Specific medications, including Voltaren gel and others that were discontinued or for acute infection, were identified, and the patient was told to stop taking them. This note was constructed using voice recognition software. While every effort has been made to ensure accuracy and erp engineer, still areas may have been included sometimes these areas may affect the content or meeting of the given symptoms. Total time spent caring for the patient today was 30 minutes. This includes time spent before the visit reviewing the chart, time spent during the visit, and time spent after the visit and documentation. Patient was informed and verbally consented to the use of an ambient scribe for clinic note documentation during this visit. Medications: New lisinopril-hydrochlorothiazide 20-25 mg 1 tab PO DAILY 90 tabs 1RF Discontinued lisinopril Discontinued Reason: Patient no longer taking 30 mg PO DAILY 90 tabs 0RF
[2025-11-03 09:02] VITALS: BP 166/98; PULSE 90; TEMP 36.3; O2SAT 98; BMI 43.2
== END 2025-11-03 09:43 | disposition home or self-care (01) ==
LOC: HO.HMCH 08:56
DX: M06.9 Rheumatoid arthritis, unspecified (principal); M51.369 Other intervertebral disc degeneration, lumbar region without mention of lumbar back pain or lower extremity pain; Z91.148 Patient's other noncompliance with medication regimen for other reason; F32.A Depression, unspecified; F41.9 Anxiety disorder, unspecified; I10 Essential (primary) hypertension

== ENCOUNTER → 2025-11-03 08:56 | Outpatient (BNVA) | payer OTHER, SELFPAY | DX: M51.369 Other intervertebral disc degeneration, lumbar region without mention of lumbar back pain or lower extremity pain (principal); F32.A Depression, unspecified; F41.9 Anxiety disorder, unspecified; M06.9 Rheumatoid arthritis, unspecified; I10 Essential (primary) hypertension; Z91.148 Patient's other noncompliance with medication regimen for other reason; Z79.891 Long term (current) use of opiate analgesic; Z79.899 Other long term (current) drug therapy | CPT/HCPCS: 99212 ==